=== PATIENT | male | born 1985 | race African-American/Black ===

== ENCOUNTER 2017-06-19 10:29 | Emergency (ER) | payer OTHER ==
[2017-06-19 10:47] VITALS: BP 126/81
[2017-06-19] MEDS ORDERED: Lidocaine 1% with EPINEPHrine 1:100,000 20 ML MDV INJECT ONE (11:00)
--- NOTE | 2017-06-19 11:37 | EDM.PDOC ---
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 He has a 6cm laceration to the anterior lower leg. His tetanus is up to date. He has no other injury. Onset: Sudden Duration: Minutes: Location: Reports: Lower Extremity, Right (lower leg) Quality: Reports: Sharp Severity: Mild Improves with: Reports: None Worsens with: Reports: None Context: Reports: Activity (Getting up on his flat bed) Associated Symptoms: Reports: No Other Symptoms Right Lower Leg Pain Score (Numeric/FACES): 8 - Related Data Allergies Allergy/AdvReac Type Severity Reaction Status Date / Time No Known Allergies Allergy Verified 06/19/17 10:42 Home Meds: Home Meds . [No Known Home Meds] 06/19/17 [History] Past Medical History HEENT History: Reports: Impaired Vision Musculoskeletal History: Reports: Fracture - Past Surgical History HEENT Surgical History: Reports: Other (See Below) Other HEENT Surgeries/Procedures: surgery on left eye Musculoskeletal Surgical History: Reports: None Social & Family History - Family History Family Medical History: Noncontributory - Tobacco Use Smoking Status *Q: Current Every Day Smoker Years of Tobacco use: 1 Packs/Tins Daily: 1 - Caffeine Use Caffeine Use: Reports: Coffee - Recreational Drug Use Recreational Drug Use: No Review of Systems - Review of Systems Review Of Systems: See Below Constitutional: Reports: No Symptoms Eyes: Reports: No Symptoms Ears: Reports: No Symptoms Nose: Reports: No Symptoms Mouth/Throat: Reports: No Symptoms Respiratory: Reports: No Symptoms Cardiovascular: Reports: No Symptoms GI/Abdominal: Reports: No Symptoms Genitourinary: Reports: No Symptoms Musculoskeletal: Reports: Other (6cm laceration to the right lower leg) ED EXAM, GENERAL - Physical Exam Exam: See Below Exam Limited By: No Limitations General Appearance: Alert, No Apparent Distress Ears: Normal External Exam Nose: Normal Inspection Head: Atraumatic, Normocephalic Neck: Normal Inspection Respiratory/Chest: No Respiratory Distress Extremities: Other (6cm angled laceration. Good sensation and pulses distally.) ED TRAUMA EXTREMITY PROCEDURES - Laceration/Wound Repair Right Leg Lac/Wound Length In cm: 6 Appearance: Subcutaneous, Irregular, Clean Distal NVT: Neuro & Vascular Intact, No Tendon Injury Anesthetic Type: Local Local Anesthesia - Lidocaine (Xylocaine): 1% With EPI Skin Prep: Saline Exploration/Debridement/Repair: Wound Explored, in a Bloodless Field, Explored to Base Closed With: Sutures Suture Size: 3-0 # of Sutures: 7 Suture Type: Nylon, Interrupted, Simple Tetanus Status Addressed: Yes Complications: No Course - Vital Signs Last Recorded V/S: Last Vital Signs Temp 97.2 F 06/19/17 10:42 Pulse 65 06/19/17 10:42 Resp 14 06/19/17 10:42 BP 126/81 06/19/17 10:42 Pulse Ox 98 06/19/17 10:42 - Orders/Labs/Meds Meds: Medications Discontinued Medications Generic Name Dose Route Start Last Admin Trade Name Josephine PRN Reason Stop Dose Admin Lidocaine/Epinephrine 20 ml 06/19/17 11:00 06/19/17 11:12 Xylocaine 1% With Epinephrine 1:100,000 INJECT 06/19/17 11:01 20 ml ONETIME ONE Administration Departure - Departure Time of Disposition: 11:35 Disposition: Home, Self-Care 01 Condition: Good Clinical Impression: Laceration of right lower leg Qualifiers: Encounter type: initial encounter Qualified Code(s): S81.811A - Laceration without foreign body, right lower leg, initial encounter - Discharge Information Referrals: PCP,None [Primary Care Provider] - Lanny Bettencourt PA-C [Physician Access Services Librarian] - 1 Week Forms: ED Department Discharge Additional Instructions: Wash the laceration with warm soapy water 2 times per day and apply antibiotic ointment after. Have the sutures removed in 7 to 10 days. You can come back to the ER or go to our clinic or see your provider to have them out. Look for any sign of infection such as redness, swelling, pain or drainage. If you see any signs of infection please return or see your provider.
== END 2017-06-19 12:05 | disposition home or self-care (01) ==
LOC: JD.ED 10:29
DX: S81.811A Laceration without foreign body, right lower leg, initial encounter (principal); F17.210 Nicotine dependence, cigarettes, uncomplicated; Z98.890 Other specified postprocedural states; W22.8XXA Striking against or struck by other objects, initial encounter; Y93.89 Activity, other specified; Y99.0 Civilian activity done for income or pay
CPT/HCPCS: 12002; 99282-25; 99283-25